=== PATIENT | male | born 1970 | race Two or more races ===

== ENCOUNTER 2021-10-25 19:57 | Emergency (ER) | payer SELFPAY ==
[~2021-10-25] VITALS: Ht 170.2 cm; Wt 70.0 kg
[2021-10-25] MEDS ORDERED: INSULIN SQ (20:09)
[2021-10-25] MEDS ORDERED: NAPR-1024 PO (21:23)
[2021-10-25 21:37] VITALS: BP 136/86
== END 2021-10-25 21:39 | disposition home or self-care (01) ==
LOC: EMS 19:59
DX: M54.2 Cervicalgia (principal); E11.9 Type 2 diabetes mellitus without complications; V49.49XA Driver injured in collision with other motor vehicles in traffic accident, initial encounter; Y93.89 Activity, other specified; Y92.89 Other specified places as the place of occurrence of the external cause; Y99.8 Other external cause status
CPT/HCPCS: 99282; Z7502